=== PATIENT | female | born 1990 | race Caucasian/White ===

== ENCOUNTER 2016-07-25 14:48 | Emergency (ER) | payer MEDICAID ==
[~2016-07-25] VITALS: Ht 170.2 cm; Wt 109.1 kg
[2016-07-25 14:50] VITALS: BP 134/80
[2016-07-25 15:49] LABS: BLOOD UREA NITROGEN 11 mg/dL (7-18)
== END 2016-07-25 18:09 | disposition home or self-care (01) ==
LOC: ED 18:00
DX: R10.9 Unspecified abdominal pain (principal)
CPT/HCPCS: 36415; 76830; 80048; 81001; 82040; 84703; 85025; 87077; 87086; 87147; 87186; 99285